=== PATIENT | male | born 1950 | race Two or more races ===

== ENCOUNTER → 2019-09-30 | Outpatient (CLI) | payer MEDICARE | END | disposition home or self-care (01) | LOC: MSC 09:30 | PROVIDERS: ATTEND Anesthesiology | DX: M47.27 Other spondylosis with radiculopathy, lumbosacral region (principal); M51.26 Other intervertebral disc displacement, lumbar region; M40.299 Other kyphosis, site unspecified; M62.830 Muscle spasm of back; M79.2 Neuralgia and neuritis, unspecified; G89.4 Chronic pain syndrome ==

== ENCOUNTER 2022-07-25 09:22 | Outpatient (CLI) | payer MEDICARE, OTHER | END 2022-07-25 23:59 | disposition home or self-care (01) | LOC: MSC 09:22 | PROVIDERS: ATTEND Anesthesiology | DX: G89.4 Chronic pain syndrome (principal); M51.26 Other intervertebral disc displacement, lumbar region; M47.27 Other spondylosis with radiculopathy, lumbosacral region; M40.299 Other kyphosis, site unspecified; M62.830 Muscle spasm of back; M79.2 Neuralgia and neuritis, unspecified; Z79.891 Long term (current) use of opiate analgesic; Z79.1 Long term (current) use of non-steroidal anti-inflammatories (NSAID) ==

== ENCOUNTER 2022-08-31 09:52 | Day surgery (SDC) | payer MEDICARE, OTHER ==
[2022-08-31] MEDS ORDERED: LIDOCAINE 1% INJ 50 ML MDV IJ ONE (10:56)
[2022-08-31] MEDS ORDERED: BUPIVACAINE 0.25% 75 MG/30 ML VIAL ONE (10:56)
[2022-08-31] MEDS ORDERED: IOHEXOL 50 ML IV ONE (10:56)
[2022-08-31] MEDS ORDERED: methylPREDNISolone ACETATE 80 MG/ML VIAL ONE (10:56)
== END 2022-08-31 12:00 | disposition home or self-care (01) ==
LOC: DS 09:52
PROVIDERS: ATTEND Anesthesiology
DX: M47.26 Other spondylosis with radiculopathy, lumbar region (principal); I25.10 Atherosclerotic heart disease of native coronary artery without angina pectoris; E66.9 Obesity, unspecified
CPT/HCPCS: 62323; 72020; J1040; J3490; J7030; Q9967